=== PATIENT | female | born 1990 | race Caucasian/White ===

== ENCOUNTER 2017-09-26 08:50 | Day surgery (SDC) | payer BC ==
[~2017-09-26] VITALS: Ht 170.2 cm; Wt 129.3 kg
[~2017-09-26 08:50] MED LIST: CALCIUM 600 +1 EAC1 PO; DEPO-PROVER150 MG/ML IM; IBUPROFEN800 MG PO; IMITREX100 MG PO; ROBAXIN-750750 MG PO; SINGULAIR10 MG PO; TOPROL XL50 MG PO; VITAMIN D50000 UNI1 PO; VITAMIN E400 UNIT PO; ZOFRAN ODT4 MG PO
[2017-09-26] MEDS ORDERED: TRIAMTERENE-HC1 EAC1 PO (09:03)
[2017-09-26] MEDS ORDERED: OXYCODON-ACETA1 EAC2 PO (11:42)
[2017-09-26] MEDS ORDERED: IBUPROFEN600 MG PO (11:42)
[2017-09-26] MEDS ORDERED: MAPAP325 MG PO (11:42)
--- NOTE | 2017-09-26 11:44 | NUR ---
09/26/17 1144 Delmy Agustin 1132-PATIENT ARRIVED TO PACU ON 6L MASK O2 SAT 100% PATIENT REACTIVE OPENS EYES. 4 LAP SITES TO ABDOMEN. SCANT AMT OF SHADOWING TO STERI STRIPS. 1139-PATIENT REPORTING PAIN 8/10 TO ABDOMEN MEDICATED PER EMAR. 6L MASK O2 SAT 99%
--- NOTE | 2017-09-26 12:17 | NUR ---
ICED WATER GIVEN. PT DENIES DESIRE FOR DRINK. FAMILY REMAINS @ BS. CALL LIGHT W/IN REACH.
--- NOTE | 2017-09-26 12:24 | NUR ---
CONTINUOUS PULSE OXIMETER IN PLACE.
--- NOTE | 2017-09-26 12:24 | NUR ---
HARD COPY PRESCRIPTION GIVEN TO PT'S MOTHER.
--- NOTE | 2017-09-26 13:27 | NUR ---
PATIENT REPOSITIONS SELF IN BED IN RIGHT LATERAL POSITION. PILLOW PLACED UNDER THE PATIENT'S BACK. HOB LOWERED PER PT REQUEST. PT REPORTS DECREASE IN PAIN AFTER REPOSITIONING. PT CONTINUES ON CONTINUOUS PULSE OXIMETER.
--- NOTE | 2017-09-26 14:17 | NUR ---
FAMILY REMAINS @ BS. TEE STODDARD. CONTINUOUS PULSE OXIMETER REMAINS IN PLACE.
--- NOTE | 2017-09-26 15:53 | NUR ---
C/O NAUSEA ZOFRAN GIVEN.
--- NOTE | 2017-09-26 16:42 | NUR ---
PT REPORTS NAUSEA HAS IMPROVED. PT REPORTS "A TINY" BIT OF IMPROVEMENT IN PAIN. PT UP TO BR W/RN STANDBY. PT AMBULATES WELL AND REPORTS "A LITTLE BIT" OF DIZZINESS. PT VOIDS 300 ML DARK YELLOW URINE AND REPORTS LIGHT HEADEDNESS AND INCREASED NAUSEA. PT IS COOL AND CLAMMY. RINKU HUGGER ON COOL. PT BACK IN BED. SCDS ON. CALL LIGHT W/IN REACH.
--- NOTE | 2017-09-26 17:47 | NUR ---
ICED WATER AND SOUP GIVEN. PARENTS REMAIN @ BS. PT REPORTS PAIN IS DECREASING.
--- NOTE | 2017-09-26 18:28 | NUR ---
PT ASSISTED DRESSED AND MOVES AROUND WHILE DRESSING WELL. GLASSES GIVEN. VERBAL DC INSTRUCTIONS GIVEN AND PT VERBALIZES UNDERSTANDING.
--- NOTE | 2017-10-03 12:51 | OR ---
[facility] [address], [place] [address] Signed DATE OF OPERATION: 09/26/2017 SURGEON: Linda Veronica MD PREOPERATIVE DIAGNOSES: 1. Chronic acalculous cholecystitis. 2. Morbid obesity (BMI 44, weight 285 pounds). POSTOPERATIVE DIAGNOSES: 1. Chronic acalculous cholecystitis. 2. Morbid obesity (BMI 44, weight 285 pounds). PROCEDURE: 1. Laparoscopic cholecystectomy with intraoperative cholangiogram. 2. Surgeon-directed fluoroscopy. SURGEON: Linda Veronica MD. ANESTHESIA: General endotracheal, Shanae Lita, SPECIAL SERVICE OFFICER, and local 10 mL of 0.25% Marcaine with epinephrine. 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 Jose Alfredo Izquierdo. She has been having symptoms highly suggestive of biliary disease including right subcostal pain. This follows meals. She notes that fatty food tends to cause more symptoms than others. She underwent a gallbladder ultrasound July,, which was normal and a CCK-HIDA test subsequently performed under the direction of Dr. Izquierdo, which confirmed an ejection fraction of only 1%. Reproduction of her typical symptoms was noted as well. She has no family history of biliary disease that she knows of. She is admitted at this time to undergo cholecystectomy, preferred by a laparoscopic approach. She understands the risks of bleeding, infection, bile duct injury, need for open procedure, and other unforeseen complications and wished to proceed. FINDINGS: There is a mild fatty liver. She does have significant abdominal obesity. There is no sign of cirrhotic changes. The gallbladder itself was chronically inflamed. Excision was without complication. The mucosa appeared chronically inflamed, but there was no sign of neoplasm or stone. Cholangiogram was normal as well. There was some slight oozing of the right-sided 5 mm trocar sites requiring additional cautery and some hemostatic agent, but by conclusion good hemostasis was noted. Electronically Signed By: LINDA VERONICA MD 10/03/17 1251 PATIENT NAME: TACO RAMESH OPERATIVE REPORT DATE OF : 86 PHYSICIAN: LINDA VERONICA MD REPORT #: [id number] REPORT IS CONFIDENTIAL AND NOT TO BE RELEASED WITHOUT AUTHORIZATION [facility] [address], [place] [address] Signed PROCEDURE: The patient was brought to the operating room, given a general endotracheal anesthetic. Preoperative antibiotic Ancef was given. Sequential compression device stockings used and heparin subcutaneously administered. The abdomen was prepared with a chlorhexidine solution and draped sterilely. An infraumbilical incision was made using an open Melvi cannula technique and pneumoperitoneum was achieved to a level of 14 mmHg with carbon dioxide gas. Intraabdominal inspection showed no sign of ascites or carcinomatosis. The gallbladder had chronic inflammatory appearance. A 10 mm epigastric port was placed and two 5 mm right-sided trocars also placed under direct visualization. Gallbladder was elevated cephalad and retracted laterally and using blunt and electrocautery dissection, the triangle of Calot was dissected free ultimately applying clips to small cystic arterial branch near the cystic duct and clipped across the gallbladder cystic duct junction. The critical view of safety was maintained during course of dissection. Photographs were taken as well. The clip that was applied across gallbladder cystic duct junction was secured and a transverse choledochotomy made in the cystic duct. Retrograde milking of the cystic duct showed some thick yellow bile. Using the Carreon type cholangiocatheter, intraoperative cholangiography was undertaken with surgeon-directed fluoroscopy. Free flow of contrast was noted into the biliary tree with prompt emptying into the duodenum. There was a bit of a leak at the insertion site of the catheter. Retrograde filling of the biliary tree was noted as well. There was no sign of filling defect, biliary anomalies, or other problem. The catheter was removed. The cystic duct was triply clipped and divided and gallbladder dissected free in a retrograde fashion. A slight rent in the gallbladder allowed for egress of clear bile. There was no stone material. The gallbladder was fully excised and placed in endobag and extracted through the infraumbilical port site, opened on the back table, and found to have chronic inflammatory changes. There was no sign of stone or neoplasm. Irrigation was undertaken in the subhepatic space. There was no bile leak or other problems. The right upper 5 mm trocar was removed. There was small amount of oozing, on that basis, electrocautery was applied. An attempt to use a Burgos closure device was made, but the trocar site could never be re-interrogated. This may be related to a larger size device that was attempted to be used. In any case with electrocautery and a small amount of Jaz hemostatic agent, good hemostasis was noted. Similar phenomenon was noted in the right lower 5 mm port. Similar measures used to secure it. The epigastric trocar was removed without problem showing no sign of bleeding. Plans were then made for closure. The infraumbilical fascial incision was reapproximated with interrupted 0 Vicryl suture. All wounds were copiously irrigated with saline solution. Skin closed with interrupted 3-0 Vicryl. Steri-Strips were applied. 10 mL of 0.25% Marcaine with epinephrine was injected in each of the trocar site areas. A total of 10 mL was used. She was ultimately extubated, transferred to recovery room in good condition having suffered no complications. Sponge, needle, and instruments counts reported as correct x3. Electronically Signed By: LINDA VERONICA MD 10/03/17 1251 PATIENT NAME: TACO RAMESH OPERATIVE REPORT DATE OF : 86 PHYSICIAN: LINDA VERONICA MD REPORT #: [id number] REPORT IS CONFIDENTIAL AND NOT TO BE RELEASED WITHOUT AUTHORIZATION [address] [address] Signed MD LORI Menon/FLAKOL /[id number] cc: Jose Alfredo Izquierdo DO Electronically Signed By: LINAD VERONICA MD 10/03/17 1251 PATIENT NAME: TACO RAMESH OPERATIVE REPORT DATE OF : 86 PHYSICIAN: LINDA VERONICA MD REPORT #: [id number] REPORT IS CONFIDENTIAL AND NOT TO BE RELEASED WITHOUT AUTHORIZATION
== END 2017-09-26 18:35 | disposition home or self-care (01) ==
LOC: DS 08:50
PROVIDERS: Surgery
PROC: BF13YZZ Fluoroscopy of Gallbladder and Bile Ducts using Other Contrast (ICD-10-PCS; 2017-09-26)
PROC: 0FT44ZZ Resection of Gallbladder, Percutaneous Endoscopic Approach (ICD-10-PCS; principal; 2017-09-26 09:45)
DX: K81.1 Chronic cholecystitis (principal); E66.01 Morbid (severe) obesity due to excess calories; Z68.41 Body mass index [BMI] 40.0-44.9, adult
CPT/HCPCS: 00790; 74300; J0330; J0690; J1100; J1644; J1885; J2250; J2270; J2405; J2550; J2704; J3010; J3475; J7120; Q9967

== ENCOUNTER 2019-02-06 07:26 | Emergency (ER) | payer OTHER, BC ==
[~2019-02-06] VITALS: Ht 170.2 cm; Wt 117.0 kg
--- OUTSIDE RECORDS SUMMARY | ~2019-02-06 | XMS | Clinical Summary ---
Demographics + + + | Address | [address] | | | [place] [address] | + + + | Home Phone | | + + + | Preferred Language | Unknown | + + + | Marital Status | Single | + + + | Protestant Affiliation | Unknown | + + + | Race | Unknown | + + + | Ethnic Group | Unknown | + + + Author + + + | Author | [facility] | | | and [facility] | + + + | Organization | [facility] | | | and [facility] | + + + | Address | Unknown | + + + | Phone | Unavailable | + + + Care Team Providers + +------+ + | Care Brick Pointer Name | Role | Phone | + +------+ + PP | Unavailable | + +------+ + Allergies Not on File Current Medications Not on file Active Problems Not on file Social History + +-------+ +--------+------+ | Tobacco Use | Types | Packs/Day | Years | Date | | | | | Used | | + +-------+ +--------+------+ | Never Assessed | | | | | + +-------+ +--------+------+ + + + | Sex Assigned at | Date Recorded | | | | + + + | Not on file | | + + + Plan of Treatment + + + + + | Health Maintenance | Due Date | Last Done | Comments | + + + + + | Vaccine: | | | | | Dtap/Tdap/Td (1 - | 7 | | | | Tdap) | | | | + + + + + | Cervical Cancer | | | | | Screening (Pap) | 8 | | | + + + + + | Vaccine: Influenza | | | | | (#1) | 8 | | | + + + + + Results Not on filefrom Last 3 Months"
--- OUTSIDE RECORDS SUMMARY | ~2019-02-06 | XMS | Clinical Summary ---
Demographics + + + | Address | [address] | | | [place] [address] | + + + | Home Phone | | + + + | Preferred Language | Unknown | + + + | Marital Status | Single | + + + | Mosque Affiliation | Unknown | + + + | Race | Unknown | + + + | Ethnic Group | Unknown | + + + Author + + + | Author | [facility] | | | and [facility] | + + + | Organization | [facility] | | | and [facility] | + + + | Address | Unknown | + + + | Phone | Unavailable | + + + Care Team Providers + +------+ + | Care Scientific Laboratory Supervisor Name | Role | Phone | + [...]
[~2019-02-06 07:26] MED LIST changes: +IBUPROFEN600 MG PO; +MAPAP325 MG PO; +OXYCODON-ACETA1 EAC2 PO; +TRIAMTERENE-HC1 EAC1 PO
[2019-02-06] MEDS ORDERED: WELLBUTRIN SR150 MG PO (07:35)
[2019-02-06] MEDS ORDERED: ISENTRESS400 MG PO (07:53)
[2019-02-06] MEDS ORDERED: TRUVADA 200 MG1 EACH PO (07:53)
== END 2019-02-06 08:03 | disposition home or self-care (01) ==
LOC: ED 07:26
DX: Z77.21 Contact with and (suspected) exposure to potentially hazardous body fluids (principal); G43.909 Migraine, unspecified, not intractable, without status migrainosus; Z87.891 Personal history of nicotine dependence; Z88.8 Allergy status to other drugs, medicaments and biological substances; Z79.899 Other long term (current) drug therapy
CPT/HCPCS: 36415; 84460; 86703; 86707; 86803; 87350; 99283

== ENCOUNTER 2020-10-16 09:14 | Day surgery (SDC) | payer BC ==
[~2020-10-16] VITALS: Ht 170.2 cm; Wt 137.0 kg
[~2020-10-16 09:14] MED LIST changes: +ARTHRITIS PAIN100 GM TOP; +CITRACAL + D E1 EACH PO; +ISENTRESS400 MG PO; +K2 PLUS D3 TAB1 EACH PO; +L-LYSINE500 M1 PO; +LEXAPRO20 MG PO; +OMEGA 3 500 SO1 EACH PO; +OMEPRAZOLE20 MG PO; +TRUVADA 200 MG1 EACH PO; +WELLBUTRIN SR150 MG PO
--- NOTE | 2020-10-16 11:12 | NUR ---
10/16/20 1112 Eli Henriquez 1106- PT ARRIVES TO PACU ALERT AND TALKING. PT REPORTS NO PAIN OR NAUSEA AND FALLS TO SLEEP WHEN NOT BEING TALKED TO. RESP EVEN AND UNLABORED. OXYGEN SAT MID TO HIGH 90'S ON 2L VIA NC. 1111- OXYGEN TITRATED OFF.
--- NOTE | 2020-10-21 13:30 | OR ---
[facility] [address] [place], [place] [address] Signed DATE OF OPERATION: 10/16/2020 SURGEON: Linda Veronica MD PREOPERATIVE DIAGNOSIS: Upper abdominal pain marginally benefitted by PPI medication. POSTOPERATIVE DIAGNOSES: 1. Normal-appearing esophagus and normal flap valve. 2. Mild inflammation of stomach without erosion or ulcer. PROCEDURE: Esophagogastroduodenoscopy with biopsy. ANESTHESIA: Intravenous sedation, fentanyl 100 mcg, Versed 6 mg. INDICATION: This 30-year-old white woman is a patient of SHIRLEY Graham and has complaints of upper abdominal pain. She has some gastroesophageal reflux symptoms. No specific dysphagia. She is on PPI medication, Prilosec. This is of some, but not complete benefit. She has no associated dysphagia or hematemesis. She is admitted at this time to undergo upper endoscopy to better characterize her problem. She understand the risks of bleeding, infection, and perforation. FINDINGS: Esophagus was normal. There was no hiatal hernia. The duodenum was reasonably normal though there was mild bulbar duodenitis and mild antral gastritis. There was no sign of ulceration or erosion. CLOtest was negative 15 minutes post procedure. DESCRIPTION OF PROCEDURE: The patient was brought to the endoscopy suite and placed in lateral decubitus position, given intravenous sedation to the point of slurred speech and nystagmus. A bite block was placed. An Olympus video upper endoscope was passed in the hypopharynx, the vocal cords visualized as normal. Scope was advanced to the esophagus, throughout its length it appeared completely normal. The scope was advanced to the stomach, which was insufflated with air. There was no bile within the stomach. Rugal folds appeared normal. Antral motility was normal. The pylorus was normal. Scope was passed through into the duodenal, which was normal. Second and 3rd portions were normal, but were biopsied to assess for celiac disease and biopsies then undertaken of the bulbar Electronically Signed By: LINDA VERONICA MD 10/21/20 1330 PATIENT NAME: TACO RAMESH OPERATIVE REPORT DATE OF : 86 REPORT #: [id number] PHYSICIAN: LINDA VERONICA MD PCP: VANE HARP PAC REPORT IS CONFIDENTIAL AND NOT TO BE RELEASED WITHOUT AUTHORIZATION [facility] [address] [place], [place] [address] Signed portion, which had minimal inflammation. The scope was withdrawn and biopsies were taken of the antrum for both MARIA M and pathologic testing. Retroflex view did show the proximal stomach had mild inflammation. No sign of ulceration. The flap valve was quite good. There was no hiatal hernia. Scope was withdrawn to the distal esophagus and although, the mucosa was perfectly normal biopsied nevertheless. The scope was withdrawn and biopsies were then taken of the mid esophagus. Scope was removed and the patient was taken to the recovery room in good condition. CONCLUDING DIAGNOSIS: Very few findings on endoscopy to account for her current symptoms. Consideration might be made, this could be a biliary problem. On that basis, we will review consideration of biliary workup. In the meantime, she will stay on Prilosec 20 mg daily. Could consider Carafate trial 1 g p.o. q.i.d. pending this workup as there was mild inflammation of the stomach. Linda Veronica MD JM/MODL /[id number] cc: Vane Harp PA-C Copies: VANE HARP ~ Electronically Signed By: LINDA VERONICA MD 10/21/20 1330 PATIENT NAME: TACO RAMESH OPERATIVE REPORT DATE OF : 86 REPORT #: [id number] PHYSICIAN: LINDA VERONICA MD PCP: VANE HARP REPORT IS CONFIDENTIAL AND NOT TO BE RELEASED WITHOUT AUTHORIZATION
== END 2020-10-16 11:46 | disposition home or self-care (01) ==
LOC: OPS 09:14 → DS 09:19 → OPS 11:46 → DS 13:00
PROVIDERS: ATTEND Surgery
PROC: 0DB78ZX Excision of Stomach, Pylorus, Via Natural or Artificial Opening Endoscopic, Diagnostic (ICD-10-PCS; 2020-10-16)
PROC: 0DB98ZX Excision of Duodenum, Via Natural or Artificial Opening Endoscopic, Diagnostic (ICD-10-PCS; principal; 2020-10-16 12:00)
DX: K31.9 Disease of stomach and duodenum, unspecified (principal); K29.70 Gastritis, unspecified, without bleeding; K29.80 Duodenitis without bleeding; K21.9 Gastro-esophageal reflux disease without esophagitis; Z79.899 Other long term (current) drug therapy; Z88.8 Allergy status to other drugs, medicaments and biological substances
CPT/HCPCS: 84703; 99153; G0500; J2250; J3010; J7121

== ENCOUNTER 2021-06-07 08:08 | Emergency (ER) | payer BC ==
[~2021-06-07] VITALS: Ht 172.7 cm; Wt 140.6 kg
[2021-06-07] MEDS ORDERED: ZYRTEC10 M3 PO (10:20)
[2021-06-07] MEDS ORDERED: FOLIC ACID0.4 MG PO (10:21)
[2021-06-07] MEDS ORDERED: ZOFRAN4 MG PO (12:18)
[2021-06-07] MEDS ORDERED: FLOMAX0.4 MG PO (12:18)
[2021-06-07] MEDS ORDERED: PERCOCET 5-3251 EACH PO (12:18)
== END 2021-06-07 13:17 | disposition home or self-care (01) ==
LOC: ED 08:08
DX: N20.1 Calculus of ureter (principal); G43.909 Migraine, unspecified, not intractable, without status migrainosus; Z88.8 Allergy status to other drugs, medicaments and biological substances; Z79.899 Other long term (current) drug therapy
CPT/HCPCS: 74176; 80053; 81001; 83690; 84703; 85025; 96374; 96375; 96376; 99284-25; J1170; J1885; J2270; J2405; J7030

== ENCOUNTER 2022-12-25 12:45 | Emergency (ER) | payer BC ==
[~2022-12-25] VITALS: Ht 172.7 cm; Wt 140.6 kg
[~2022-12-25 12:45] MED LIST changes: +FLOMAX0.4 MG PO; +FOLIC ACID0.4 MG PO; +PERCOCET 5-3251 EACH PO; +ZOFRAN4 MG PO; +ZYRTEC10 M3 PO
--- OUTSIDE RECORDS SUMMARY | 2022-12-25 12:48 | XMS ---
PreManage Notification: TACO RAMESH Security Collect On Delivery Clerk Events No recent Security Events currently on file [facility] There are no care providers on record at this time. Jazmyn has no Care Guidelines for this patient. Renetta VISIT COUNT (12 MO.) 1 FRANCISCA Shaffer TOTAL 1 NOTE: Visits indicate total known visits. ED/C VISIT TRACKING (12 MO.) 12/25/2022 12:45 FRANCISCA Arevalo OR TYPE: Emergency COMPLAINT: - CHEST PAIN INPATIENT VISIT TRACKING (12 MO.) No inpatient visits to display in this time frame [id number]
[2022-12-25] MEDS ORDERED: METOPROLOL SUCC25 MG PO (13:02)
[2022-12-25] MEDS ORDERED: OZEMPIC0.25 MG/0. SUB-Q (13:02)
[2022-12-25] MEDS ORDERED: VALACYCLOVIR1000 MG PO (13:02)
[2022-12-25] MEDS ORDERED: SIMVASTATIN20 MG PO (13:03)
[2022-12-25] MEDS ORDERED: METHOCARBAMOL500 MG PO (13:03)
[2022-12-25] MEDS ORDERED: DEXTROAMP-AMPHE15 MG PO (13:03)
--- NOTE | 2022-12-25 22:09 | EKG ---
[facility] [address] [place] [address] Signed Sinus tachycardia Otherwise normal ECG When compared with ECG of 21-SEP-2017 15:57, Vent. rate has increased BY 65 BPM Confirmed by Elton Donahue MD () on 12/25/2022 10:08:54 PM Electronically Signed By: ELTON DONAHUE MD 12/25/222208 PATIENT NAME: TACO RAMESH Electrocardiogram DATE OF : 86 PHYSICIAN: ELTON DONAHUE MD REPORT #: [id number] REPORT IS CONFIDENTIAL AND NOT TO BE RELEASED WITHOUT AUTHORIZATION
== END 2022-12-25 14:48 | disposition home or self-care (01) ==
LOC: ED 12:45
DX: R07.9 Chest pain, unspecified (principal); R00.0 Tachycardia, unspecified; G43.909 Migraine, unspecified, not intractable, without status migrainosus; Z88.8 Allergy status to other drugs, medicaments and biological substances; Z79.899 Other long term (current) drug therapy
CPT/HCPCS: 36415; 71045; 80053; 83735; 84484; 85025; 85379; 93005; 93010; 99285-25; A9270

== ENCOUNTER 2024-07-23 17:14 | Emergency (ER) | payer BC ==
[~2024-07-23] VITALS: Ht 172.7 cm; Wt 125.0 kg
[~2024-07-23 17:14] MED LIST changes: +DEXTROAMP-AMPHE15 MG PO; +METHOCARBAMOL500 MG PO; +METOPROLOL SUCC25 MG PO; +OZEMPIC0.25 MG/0. SUB-Q; +SIMVASTATIN20 MG PO; +VALACYCLOVIR1000 MG PO
[2024-07-23] MEDS ORDERED: DILTIAZEM ER120 MG PO (17:32)
[2024-07-23] MEDS ORDERED: SODIUM CHLORIDE 0.9% 1,000 ML IV PRN (17:45)
[2024-07-23] MEDS ORDERED: DEXAMETHASONE SOD PHOS 10 MG/ML VIAL IV ONE (17:45)
[2024-07-23] MEDS ORDERED: ACETAMINOPHEN 325 MG TAB PO ONE (17:45)
[2024-07-23] MEDS ORDERED: diphenhydrAMINE HCL 50 MG/ML VIAL IV ONE (17:45)
[2024-07-23] MEDS ORDERED: METOCLOPRAMIDE HCL 10 MG/2 ML SDV IV ONE (17:45)
[2024-07-23] MEDS ORDERED: KETOROLAC TROMETHAMINE 15 MG/ML VIAL IV ONE (17:45)
[2024-07-23] MEDS ORDERED: ONDANSETRON ODT8 MG PO (18:51)
[2024-07-23 19:13] VITALS: BP 116/73
== END 2024-07-23 19:14 | disposition home or self-care (01) ==
LOC: ED 17:14
DX: U07.1 COVID-19 (principal); I45.6 Pre-excitation syndrome; Z88.1 Allergy status to other antibiotic agents; Z79.899 Other long term (current) drug therapy
CPT/HCPCS: 36415; 84703; 96374; 96375; 99284-25; A9270; J1100; J1200; J1885; J2765; J7030; U0002

== ENCOUNTER 2024-11-07 13:25 | Emergency (ER) | payer BC ==
[~2024-11-07] VITALS: Ht 172.7 cm; Wt 123.8 kg
[~2024-11-07 13:25] MED LIST changes: +DILTIAZEM ER120 MG PO; +ONDANSETRON ODT8 MG PO
[2024-11-07] MEDS ORDERED: ADDERALL XR 2525 MG PO (13:44)
[2024-11-07 13:51] LABS: BASOPHILS 1.2 % (0-2); HEMATOCRIT 45.7 % (35.0-50.0); HEMOGLOBIN 15.3 g/dL (12.0-18.0); LYMPHOCYTES 29.6 % (24-44); MCH 29.6 (27-36); MCHC 33.6 g/dl (30-36); MCV 88.3 fl (81-99); MONOCYTES 3.7 % (0-12); NEUTROPHILS 64.5 % (39-80); PLATELET COUNT 521 K/uL (140-440); RBC 5.17 M/ul (4.3-5.7); RDW 13.4 (10.5-15.0)
[2024-11-07 14:03] LABS: ALKALINE PHOSPHATASE 75 U/L (46-116); ALT (SGPT) 39 U/L (14-59); ANION GAP 11.5 (7-21); AST (SGOT) 14 U/L (15-37); BILIRUBIN, TOTAL 0.4 ng/dL (0.2-1.0); BUN/CREATININE RATIO 16.84 (6.0-28.6); CALCIUM 9.7 mg/dL (8.5-10.1); CARBON DIOXIDE 29 mmol/L (21-32); CHLORIDE 102 mmol/L (98-107); CREATININE, SERUM 0.95 mg/dL (0.55-1.02); GLOMERULAR FILTRATION RATE,EST 80 mL/min (>60); POTASSIUM 3.5 mmol/L (3.5-5.1); UREA NITROGEN 16 mg/dL (7-18)
[2024-11-07 17:20] VITALS: BP 102/64
--- NOTE | 2024-11-08 11:52 | EKG ---
[facility] [address] [facility] [place] [address] Signed Sinus tachycardia Right atrial enlargement Borderline ECG No previous ECGs available Confirmed by Rosie Moreland DO ([id number]) on 11/08/2024 11:52:23 AM Electronically Signed By: ROSIE MORELAND DO 11/08/24 1152 PATIENT NAME: TACO RAMESH Electrocardiogram DATE OF : 86 PHYSICIAN: ROSIE MORELAND DO REPORT #: [id number] REPORT IS CONFIDENTIAL AND NOT TO BE RELEASED WITHOUT AUTHORIZATION
== END 2024-11-07 17:20 | disposition home or self-care (01) ==
LOC: ED 13:25
PROVIDERS: Emergency Medicine
DX: R07.89 Other chest pain (principal); I49.3 Ventricular premature depolarization; Z88.8 Allergy status to other drugs, medicaments and biological substances; Z79.899 Other long term (current) drug therapy
CPT/HCPCS: 36415; 71045; 71260; 80053; 83735; 84484; 85025; 93005; 93010; 99285-25; Q9967

== ENCOUNTER 2025-07-29 05:50 | Day surgery (SDC) | payer BC ==
[~2025-07-29] VITALS: Ht 172.7 cm; Wt 126.0 kg
[~2025-07-29 05:50] MED LIST changes: +ADDERALL XR 2525 MG PO; +AZESCO TABLET1 EACH PO; +BUTALB-ACETAMI1 EACH PO; +COQMAX UBIQUIN200 MG PO; +LACTATED RINGER'S 1,000 ML IV SCH; +URO-MP CAPSULE1 EACH PO
[2025-07-29 06:01] VITALS: BP 133/74
[2025-07-29 06:28] LABS: GLOMERULAR FILTRATION RATE,EST 96.0 mL/min (>60); UREA NITROGEN 16.0 mg/dL (7-18)
[2025-07-29] MEDS ORDERED: LIDOCAINE HCL 1% 5 ML SDV INJ ONE (07:00)
[2025-07-29] MEDS ORDERED: CEFAZOLIN SODIUM 2 GM in SODIUM CHLORIDE 0.9% 100 ML IV SCH (07:00)
[2025-07-29] MEDS ORDERED: IBLOOD GLUCOSE TEST STRIP 1 EA TEST VI PRN ×2 (07:00→07:30)
[2025-07-29] MEDS ORDERED: MIDAZOLAM HCL 2 MG/2 ML VIAL ONE (07:14)
[2025-07-29] MEDS ORDERED: fentaNYL citrate 100 MCG/2 ML VIAL ONE (07:14)
[2025-07-29] MEDS ORDERED: LIDOCAINE HCL 2% 5 ML SDV ONE (07:14)
[2025-07-29] MEDS ORDERED: fentaNYL citrate 50 MCG/ML SDV IV PRN (07:30)
[2025-07-29] MEDS ORDERED: NALOXONE HCL 0.4 MG SYR IV PRN ×2 (07:30→08:45)
--- NOTE | 2025-07-29 07:53 | NUR ---
VISITED DURING SPIRITUAL CARE ROUNDS. PT IN OVERALL GOOD SPIRITS, NO IMMEDIATE CONCERNS. RN GASTROENTEROLOGY PROVIDED SUPPORTIVE PRESENCE, HOSPITALITY, PRAYER, FACILITATED INTERACTION WITH THERAPY ANIMAL. PT EXPRESSED GRATITUDE.
[2025-07-29] MEDS ORDERED: KETOROLAC TROMETHAMINE 30 MG/ML VIAL ONE (08:06)
[2025-07-29] MEDS ORDERED: OXYCODON-ACETA1 EAC2 PO (08:43)
[2025-07-29] MEDS ORDERED: IBUPROFEN600 MG PO (08:43)
[2025-07-29] MEDS ORDERED: ACETAMINOPHEN500 MG PO (08:44)
[2025-07-29] MEDS ORDERED: ACETAMINOPHEN 500 MG TAB PO PRN (08:45)
[2025-07-29] MEDS ORDERED: LACTATED RINGER'S 1,000 ML IV SCH (08:45)
[2025-07-29] MEDS ORDERED: IBUPROFEN 600 MG TAB PO PRN (08:45)
[2025-07-29] MEDS ORDERED: OXYCODONE/APAP 7.5/325 TAB PO PRN (08:45)
--- NOTE | 2025-07-29 08:46 | NUR ---
07/29/25 0846 Lacie Farrar WARM BLANKET PROVIDED AND RINKU CONN ON WARM.
[2025-07-29 09:16] VITALS: BP 124/78
--- NOTE | 2025-07-30 16:35 | OR ---
[facility] [address] [facility] [place] [address] Signed DATE OF OPERATION: 07/29/2025 SURGEON: Linda Veronica MD PREOPERATIVE DIAGNOSIS: Left posterior thorax soft tissue mass 5 cm. POSTOPERATIVE DIAGNOSIS: Left posterior thorax soft tissue mass consistent with benign lipoma. PROCEDURE: Excision of left posterior thorax lipoma (subfascial). ANESTHESIA: Local with monitored anesthesia care, Shanae London CRNA. Marcaine 0.25% with epinephrine 10 mL. 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 It was essentially over the scapula. It measures approximately 5 cm by clinical examination and is highly suggestive of lipoma. The patient elects to have this excised in the operating room setting with IV sedation and local. The risk of bleeding, infection, cosmetic deformity, and so forth were reviewed with her. She understands and wished to proceed. FINDINGS: Indeed the lesion was most likely a lipomatous mass without features to suggest sarcoma. Excision was taken down to the posterior thoracic fascia. It was a bit deeper than I expected. Complete excision was undertaken. The lesion was measured at 5 cm. The wound was closed in layers. She tolerated the procedure well. DESCRIPTION OF PROCEDURE: The patient was brought to the operating room and given intravenous sedation. Preoperative antibiotic Ancef was given. Sequential compression device stockings were used. She was placed in the right lateral position left side up and the previously marked lesion was noted over the posterior thorax essentially over the scapula itself. Intravenous sedation was induced and the area was prepared with a chlorhexidine solution and draped sterilely. The lesion was more fully demarcated and a transverse type incision was deemed most consistent with a Juli's lines to provide optimal cosmesis. A field block was undertaken with 0.25% Marcaine anesthetic. Transverse incision was Electronically Signed By: LINDA VERONICA MD 07/30/25 5725 PATIENT NAME: TACO RAMESH OPERATIVE REPORT DATE OF : 86 REPORT #: [id number] PHYSICIAN: LINDA VERONICA MD PCP: VANE HARP PAC REPORT IS CONFIDENTIAL AND NOT TO BE RELEASED WITHOUT AUTHORIZATION [facility] [address] [place], [place] [address] Signed made and dissection carried through the dermis sharply. The lipomatous lesion was below the regular subcutaneous tissue, but was well demarcated. It was dissected free with blunt and electrocautery dissection with addition of local anesthetic as necessary. It was extended down through the superficial fascial layer to the deeper layer. It was excised fully with no remnants and without fragmentation. It was measured and found to be 5 cm in length. Irrigation was undertaken and cautery used to secure hemostasis fully. The wound was then closed with interrupted 2-0 Vicryl suture and a running subcuticular of 3-0 Vicryl for the skin, which was triclosan free. Steri-Strips were applied as was an Acticoat dressing. She was ultimately returned to the supine position, taken to the recovery room in good condition having suffered no known complications. Sponge, needle, and instrument counts reported as correct x3. MD LORI Menon/MODL /[id number] cc: Vane Harp PA-C Copies: VANE HARP ~ Electronically Signed By: LINDA VERONICA MD 07/30/25 1635 PATIENT NAME: TACO RAMESH OPERATIVE REPORT DATE OF : 86 REPORT #: [id number] PHYSICIAN: LINDA VERONICA MD PCP: VANE HARP REPORT IS CONFIDENTIAL AND NOT TO BE RELEASED WITHOUT AUTHORIZATION
--- NOTE | 2025-08-01 13:14 | PATH ---
[facility] [address] [facility] [place], [place] [address] Signed SPECIMEN(S): A LEFT POSTERIOR THORAX SPECIMEN SOURCE: A. LEFT POSTERIOR THORAX CLINICAL HISTORY: Mass of soft tissue of shoulder FINAL PATHOLOGIC DIAGNOSIS: Left posterior thorax soft tissue mass, excisional biopsy - Lipoma. MICROSCOPIC EXAMINATION: Histologic sections of all submitted blocks are examined by light microscopy. These findings, together with the gross examination, support the pathologic diagnosis. GROSS DESCRIPTION: The specimen, labeled and designated "Tom, soft tissue mass left posterior thorax," is received in formalin and consists of a 4.8 x 3.3 x 2.2 cm portion of yellow lobulated and unencapsulated soft tissue. Sectioning reveals a yellow, homogeneous cut surface with no hemorrhage or necrosis. Shop Superintendent sections are submitted in (A1). TO (under the direct supervision of a pathologist) The Gross Description was prepared using a voice recognition system. The report was reviewed for accuracy; however, sound-alike word errors, addition and/or deletions may occur. If there is any question about this report, please contact Client Services. ADDITIONAL NOTES: Immunohistochemical and/or in situ hybridization studies if performed in this case included appropriate positive controls that reacted as expected. This test was developed and its performance characteristics determined by [facility]. It has not been cleared or approved by the U.S. Food and Drug Administration. The FDA has determined that such clearance or approval is not necessary. This test is used for clinical purposes. It should not be regarded as investigational or for research. [facility] is certified under the Clinical Laboratory Improvement Amendments of 1988 (CLIA) as qualified to perform high complexity clinical laboratory testing. PATIENT NAME: TACO RAMESH PATHOLOGY DATE OF : [birth year] REPORT #: [id number] PHYSICIAN: TAM CRISOSTOMO PCP: SANDRA MARROQUIN PAC REPORT IS CONFIDENTIAL AND NOT TO BE RELEASED WITHOUT AUTHORIZATION [facility] [address] [place] [address] [place], [place] [address] Signed PERFORMING LABORATORY: Technical preparation was performed by [facility], [facility] [place] [address] (CLIA#: [id number]). Professional interpretation was performed by [facility], [address] [place] [address] (CLIA#: [id number]). Diagnostician: Catina Barrios MD Pathologist Electronically Signed 08/01/2025 Copies: ~ PATIENT NAME: TACO RAMESH PATHOLOGY DATE OF : [birth year] REPORT #: [id number] PHYSICIAN: TAM CRISOSTOMO PCP: SANDRA MARROQUIN PAC REPORT IS CONFIDENTIAL AND NOT TO BE RELEASED WITHOUT AUTHORIZATION
== END 2025-07-29 09:24 | disposition home or self-care (01) ==
LOC: OPS 05:50 → DS 05:50 → OPS 07:30
PROVIDERS: Student in an Organized Health Care Education/Training Program; ATTEND Surgery
PROC: 0JB60ZZ Excision of Chest Subcutaneous Tissue and Fascia, Open Approach (ICD-10-PCS; principal; 2025-07-29 07:30)
DX: D17.1 Benign lipomatous neoplasm of skin and subcutaneous tissue of trunk (principal); I10 Essential (primary) hypertension; J45.909 Unspecified asthma, uncomplicated; Z88.8 Allergy status to other drugs, medicaments and biological substances; Z87.891 Personal history of nicotine dependence
CPT/HCPCS: 00300; 36415; 80048; J0688; J1885; J2003; J2250; J2405; J2704; J3010; J7121

== ENCOUNTER 2025-10-17 06:13 | Day surgery (SDC) | payer BC ==
[~2025-10-17] VITALS: Ht 172.7 cm; Wt 126.0 kg
[~2025-10-17 06:13] MED LIST changes: +ACETAMINOPHEN500 MG PO
[2025-10-17 06:30] VITALS: BP 133/79
[2025-10-17] MEDS ORDERED: LIDOCAINE HCL 1% 5 ML SDV INJ ONE (07:00)
[2025-10-17] MEDS ORDERED: CEFAZOLIN SODIUM 3 GM in SODIUM CHLORIDE 0.9% 100 ML IV SCH (07:00)
[2025-10-17] MEDS ORDERED: IBLOOD GLUCOSE TEST STRIP 1 EA TEST VI PRN ×2 (07:00→08:00)
--- NOTE | 2025-10-17 07:41 | NUR ---
UP TO BR RETURNED TO STRETCHER WARM BLANKET ON. IV PATENT. MOM AT BS.
[2025-10-17] MEDS ORDERED: LIDOCAINE HCL 0.5% 50 ML SDV ONE (07:46)
[2025-10-17] MEDS ORDERED: fentaNYL citrate 50 MCG/ML SDV IV PRN (08:00)
[2025-10-17] MEDS ORDERED: NALOXONE HCL 0.4 MG SYR IV PRN (08:00)
[2025-10-17] MEDS ORDERED: HYDROmorphone HCL 1 MG/ML SYR IV PRN (08:00)
[2025-10-17] MEDS ORDERED: PROCHLORPERAZINE EDISYLATE 10 MG/2 ML VIAL IV PRN (08:00)
[2025-10-17] MEDS ORDERED: MIDAZOLAM HCL 2 MG/2 ML VIAL ONE (08:35)
[2025-10-17] MEDS ORDERED: fentaNYL citrate 100 MCG/2 ML VIAL ONE (08:36)
[2025-10-17] MEDS ORDERED: KETOROLAC TROMETHAMINE 30 MG/ML VIAL ONE (08:55)
[2025-10-17] MEDS ORDERED: HYDROCODON-ACE1 EA10 PO (09:04)
[2025-10-17] MEDS ORDERED: HYDROCODONE/ACETA 5/325 TAB PO PRN (09:15)
--- NOTE | 2025-10-17 09:20 | NUR ---
10/17/25 0920 Sheets,Roselia 0903 PT ARRIVED TO PACU ON 6L VIA MASK, PT AWAKES TO VERBAL STIMULI AND REORIENTED TO PACU. PT EASILY FALLS BACK TO SLEEP. 09 O2 REMOVED AND PT DENIES NAUSEA AND PAIN. PT REPORTS NO FEELING IN HER HAND AND EDUCATION GIVEN ON BLOCK. ICE IN PLACE AND PILLOW UDER RIGHT ARM.
[2025-10-17 09:32] VITALS: BP 138/81
--- NOTE | 2025-10-17 09:47 | OR ---
[facility] [address], [place] [address] Signed DATE OF OPERATION: 10/17/2025 SURGEON: Agustina Vinson MD PREOPERATIVE DIAGNOSIS: Carpal tunnel syndrome, right. POSTOPERATIVE DIAGNOSIS: Carpal tunnel syndrome, right. PROCEDURE PERFORMED: Carpal tunnel release, right. DB2 DEVELOPER: None. ANESTHESIA: Demetrio block. TOURNIQUET TIME: 20 minutes. BRIEF HISTORY: Taco is a 35-year-old female with progressive worsening of carpal tunnel symptoms. This was confirmed with nerve conduction studies and she wished to proceed with surgery. The risks, benefits, alternatives were discussed and she understood, wished to proceed. DESCRIPTION OF PROCEDURE: Once consent was obtained, she was taken to the operating room and left on the day surgery [facility]. The hand table was brought in. After Demetrio block was established, the hand was prepped and draped in a standard sterile fashion. The carpal tunnel was approached through a 1.5 cm incision in the distal wrist crease, carried through skin and subcutaneous tissue. Palmaris longus was identified, retracted and protected. The transverse carpal ligament was identified and under loupe magnification was dissected free of overlying soft tissue proximally and distally. Under direct loupe magnification, it was released proximally a centimeter and distally to the distal extent. This was palpated using a Cook and found to be completely released. The wound was copiously irrigated with normal saline, closed with 3-0 nylon, and injected with 5 mL of 0.25% Marcaine plain. The wound was then dressed with bacitracin, Adaptic, 4 x 8s, and gauze. Electronically Signed By: AGUSTINA VINSON MD 10/17/25 0947 PATIENT NAME: TACO RAMESH OPERATIVE REPORT DATE OF : 86 REPORT #: [id number] PHYSICIAN: AGUSTINA VINSON MD PCP: SANDRA MARROQUIN PAC REPORT IS CONFIDENTIAL AND NOT TO BE RELEASED WITHOUT AUTHORIZATION [address] [place], [place] [address] Signed She tolerated the procedure well. All sponge, needle, and instrument counts were correct. Agustina Vinson MD BA/HALLE /[id number] Copies: ~ Electronically Signed By: AGUSTINA VINSON MD 10/17/25 0947 PATIENT NAME: TACO RAMESH OPERATIVE REPORT DATE OF : 86 REPORT #: [id number] PHYSICIAN: AGUSTINA VINSON MD PCP: SANDRA MARROQUIN PAC REPORT IS CONFIDENTIAL AND NOT TO BE RELEASED WITHOUT AUTHORIZATION
== END 2025-10-17 09:43 | disposition home or self-care (01) ==
LOC: DS 06:13 → EDBD 08:25 → DS 08:25
PROVIDERS: ATTEND Specialist
PROC: 01N50ZZ Release Median Nerve, Open Approach (ICD-10-PCS; principal; 2025-10-17 08:25)
DX: G56.01 Carpal tunnel syndrome, right upper limb (principal); E78.5 Hyperlipidemia, unspecified; K21.9 Gastro-esophageal reflux disease without esophagitis; Z88.8 Allergy status to other drugs, medicaments and biological substances; Z87.891 Personal history of nicotine dependence
CPT/HCPCS: 01810; 84703; J0688; J1885; J2250; J2405; J2704; J3010